=== PATIENT | female | born 1990 | race Caucasian/White ===

== ENCOUNTER 2016-09-11 08:00 | Outpatient (CLI) | payer MEDICAID | END 2016-09-11 23:59 | disposition home or self-care (01) | DX: R30.0 Dysuria (principal) ==

== ENCOUNTER 2020-07-15 07:08 | Outpatient (CLI) | payer MEDICAID ==
[2020-07-15 14:48] LABS: BASOPHILS % (AUTO) 0.6 %; EOSINOPHILS # (AUTO) 0.1 10^3/uL (0.0-0.7); EOSINOPHILS % (AUTO) 1.8 %; HGB - HEMOGLOBIN 14.3 g/dL (12.0-16.0); LYMPHOCYTES # (AUTO) 2.6 10^3/uL (1.5-3.5); LYMPHOCYTES % (AUTO) 36.1 %; MEAN CORPUSCULAR HEMOGLOBIN 31.5 pg (27.0-31.0); MEAN CORPUSCULAR VOLUME 92.5 fL (81.0-99.0); MONOCYTES # (AUTO) 0.5 10^3/uL (0.0-1.0); MONOCYTES % (AUTO) 6.5 %; NEUTROPHILS # (AUTO) 3.9 10^3/uL (1.5-6.6); NEUTROPHILS % (AUTO) 54.6 %; PLT - PLATELET COUNT 313 10^3/uL (130-450); RED BLOOD COUNT 4.54 10^6/uL (4.20-5.40); WHITE BLOOD COUNT 7.1 x10^3/uL (4.8-10.8)
[2020-07-15 15:08] LABS: ALBUMIN 4.4 g/dL (3.2-5.5); ALBUMIN/GLOBULIN RATIO 1.5 (1.0-2.2); BILIRUBIN,TOTAL 0.7 mg/dL (0.2-1.0); CALCIUM 8.8 mg/dL (8.5-10.3); CREATININE 0.8 mg/dL (0.4-1.0); TOTAL PROTEIN 7.3 g/dL (6.7-8.2)
== END 2020-07-15 07:09 | disposition home or self-care (01) ==
LOC: LAB.S 07:08
PROVIDERS: ATTEND Registered Nurse
DX: I73.00 Raynaud's syndrome without gangrene (principal); G47.63 Sleep related bruxism; G43.709 Chronic migraine without aura, not intractable, without status migrainosus; G47.9 Sleep disorder, unspecified; R53.82 Chronic fatigue, unspecified; F32.9 Major depressive disorder, single episode, unspecified; F41.9 Anxiety disorder, unspecified
CPT/HCPCS: 36415; 80050

== ENCOUNTER 2021-09-17 11:08 | Emergency (ER) | payer MEDICAID ==
[2021-09-17] MEDS ORDERED: valACYclovir 500 MG TABLET PO STA (11:38)
[2021-09-17] MEDS ORDERED: CHERRY SYRUP 10 ML UDC PO ONE (11:38)
[2021-09-17] MEDS ORDERED: DEXAMETHASONE 10 MG/ML VIAL PO STA (11:38)
--- NOTE | 2021-09-17 11:42 | ED Physician Documentation ---
PD HPI FOCAL NEURO - Stated complaint Stated Complaint: FACE DROOP LT SIDE - Chief complaint Chief Complaint: Neuro - History obtained from History obtained from: Patient - History of Present Illness Timing - onset: How many days ago (3) Timing - duration: Days (3) Timing - details: Gradual onset, Still present Severity of deficit: Severe Weakness: Face, Left Numbness: Face, Left Associated symptoms: No: Headache, Nausea / vomiting, Seizure, Syncope, Fall, Head injury, Chest pain, Neck pain, Back pain, Fever Contributing factors: negative: Anticoagulated Baseline status: positive: A&OX3, ambulatory, indep Similar symptoms before: Has not had sx before Recently seen: Not recently seen - Additional information Additional information: Previously well 31-year-old female reports that she had an odd sensation on the left side of her tongue 3 days ago the day following that she began to have some difficulty with asymmetry to her face and this morning she is awake and with irritation to her left eye and her an obvious facial droop. She denies any weakness elsewhere. She denies any cold sores any sore in her nose any irritation to her eye other than the irritation this morning when she awoke. Review of Systems Constitutional: denies: Fever Eyes: reports: Irritation. denies: Decreased vision Ears: reports: Ear pain (behind left ear periodically) Nose: denies: Rhinorrhea / runny nose, Congestion Throat: denies: Sore throat Cardiac: denies: Chest pain / pressure, Palpitations Respiratory: reports: Cough (usual smokers cough). denies: Dyspnea PD PAST MEDICAL HISTORY - Past Medical History Cardiovascular: None Respiratory: None Endocrine/Autoimmune: None GI: None ROLLER MAN: None : Chronic bladder infection HEENT: None Psych: None Musculoskeletal: Chronic back pain Derm: None - Past Surgical History Past Surgical History: Yes /ROLLER MAN: section - Present Medications Home Medications: Ambulatory Orders Medication Instructions Recorded Confirmed HYDROcod/ACETAM 5/325 [Vicodin 1 - 2 ea PO Q6H PRN 07/26/15 07/26/15 5/325] Ibuprofen [Motrin] 800 mg PO Q8H PRN 07/26/15 07/26/15 Valacyclovir HCl [Valtrex] 1,000 mg PO TID #21 tablet 09/17/21 - Allergies Allergies/Adverse Reactions: Allergies Allergy/AdvReac Type Severity Reaction Status Date / Time Penicillins AdvReac Nausea Verified 09/17/21 11:22 - Social History Does the pt smoke?: No Smoking Status: Never smoker Does the pt drink ETOH?: No Does the pt have substance abuse?: Yes - Immunizations Immunizations are current?: Yes - POLST Patient has POLST: No PD ED PE NORMAL - Vitals Vital signs reviewed: Yes (Tachycardic and hypertensive) - General General: Alert and oriented X 3, Well developed/nourished, Other (Obvious left facial droop with involvement of the forehead.) - HEENT HEENT: Atraumatic, PERRL, EOMI, Ears normal, Other (No tenderness to the left mastoid process. There is obvious left facial paralysis in the distribution of the entire nerve includes forehead the eye and the mouth.) - Neck Neck: Supple, no meningeal sign, No bony TTP - Cardiac Cardiac: RRR, No murmur - Respiratory Respiratory: No respiratory distress, Clear bilaterally - Abdomen Abdomen: Soft, Non tender - Back Back: No CVA TTP, No spinal TTP - Derm Derm: Normal color, Warm and dry, No rash - Extremities Extremities: No deformity, No edema - Neuro Neuro: Alert and oriented X 3, Normal speech, Other (Obvious left facial droop that involves the forehead) Eye Opening: Spontaneous Motor: Obeys Commands Verbal: Oriented GCS Score: 15 - Psych Psych: Normal mood, Normal affect NIHSS - Time Time: 11:39 - Level of Consciousness Level of consciousness: (0) Alert, Keenly responsive LOC Questions: (0) Answers both Q's correct LOC Commands: (0) Performs both correctly - Gaze Best Gaze: (0) Normal - Visual Visual: (0) No loss - Facial Palsy Facial Palsy: (3) Complete paralysis - Motor Arms (both separate) Motor Arm (right): (0) No drift Motor Arm (left): (0) No drift - Motor Legs (both separate) Motor Leg (right): (0) No drift Motor Leg (left): (0) No drift - Limb Ataxia Limb Ataxia: (0) Absent - Sensory Sensory: (0) Normal - Best Language Best Language: (0) No aphasia - Dysarthria Dysarthria: (0) Normal - Extinction and Inattention (formally neg Extinction and inattention: (0) No abnormality - Total Score/Results Total Score/Result: 3 Results - Vitals Vitals: Vital Signs - 24 hr 09/17/21 11:17 Temperature 37.1 C Heart Rate 108 H Respiratory 17 Rate Blood Pressure 131/89 H O2 Saturation 100 Oxygen O2 Source Room air PD MEDICAL DECISION MAKING - ED course Complexity details: reviewed old records, considered differential, d/w patient ED course: 31-year-old female 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 She has a dense paresthesias to the left face including the left eye and forehead.She is not able to close her eye completely. She is administered dexamethasone and valacyclovir here in the emergency department. Her eye is lubricated and taped shut. Departure - Departure Disposition: 01 Home, Self Care Clinical Impression: Hawk's palsy Condition: Stable Instructions: ED [place] Palsy Follow-Up: Isadora Rangel ARNP [Primary Care Provider] - Prescriptions: Valacyclovir HCl [Valtrex] 1,000 mg PO TID #21 tablet Comments: Rosalba, today looks like there is some paralysis to the facial nerve on the left side. This usually takes more than a week to resolve and sometimes leaves you with some permanent paralysis. Of particular attention is your eye, which will need to be lubricated and taped shut at night and lubricated frequently during the day. I have E scribed some valacyclovir to [facility] in [place].
[2021-09-17 11:54] VITALS: BP 123/88
== END 2021-09-17 12:13 | disposition home or self-care (01) ==
LOC: ED 11:08
DX: G51.0 Bell's palsy (principal)
CPT/HCPCS: 36415; 99283; 99284; A9270